=== PATIENT | male | born 1975 | race Caucasian/White ===

== ENCOUNTER 2019-01-09 06:29 | Emergency (ER) | payer MEDICARE ==
[~2019-01-09] VITALS: Ht 185.4 cm; Wt 130.0 kg
[2019-01-09 06:34] VITALS: Ht 185.4 cm; Wt 130.0 kg
[2019-01-09] MEDS ORDERED: METOPROLOL TART25 MG PO (06:35)
[2019-01-09] MEDS ORDERED: FEXOFENADINE HC60 MG PO (06:36)
[2019-01-09] MEDS ORDERED: MOBIC7.5 MG PO (06:36)
[2019-01-09] MEDS ORDERED: PRILOSEC (06:36)
[2019-01-09] MEDS ORDERED: MEDROL DOSE PACK4 MG PO (07:16)
[2019-01-09] MEDS ORDERED: FLUTICASONE PRO16 GM NASAL (07:16)
[2019-01-09] MEDS ORDERED: ALBUTEROL SULF8.5 GM INH (07:16)
[2019-01-09 08:03] VITALS: BP 121/85
== END 2019-01-09 08:04 | disposition home or self-care (01) ==
LOC: D.ER 06:29
DX: J30.9 Allergic rhinitis, unspecified (principal); J45.909 Unspecified asthma, uncomplicated